=== PATIENT | female | born 1980 ===

== ENCOUNTER 2017-09-19 05:57 | Day surgery (SDC) | payer OTHER ==
[~2017-09-19 05:57] MED LIST: MUCINEX600 MG PO; SEPTRA PO; ZYRTEC10 M3 PO
== END 2017-09-19 11:25 | disposition home or self-care (01) ==
LOC: CIR.AMB 05:57
DX: L72.3 Sebaceous cyst (principal)

== ENCOUNTER 2018-07-31 11:30 | Inpatient (IN) | payer OTHER ==
[~2018-07-31] VITALS: Ht 157.5 cm; Wt 66.7 kg
[2018-07-31] MEDS ORDERED: ALLEGRA ALLERG180 MG PO (13:19)
[2018-07-31] MEDS ORDERED: [UNRECOGNIZED DRUG - OTHER] PO (13:21)
[2018-07-31] MEDS ORDERED: NITROFURANTOIN100 MG PO (13:22)
[2018-07-31] MEDS ORDERED: FLONASE16 GM NS (13:28)
[2018-08-03] MEDS ORDERED: PHENAZOPYRIDIN100 MG PO (11:05)
[2018-08-06] MEDS ORDERED: IBUPROFEN800 MG PO (07:38)
[2018-08-06] MEDS ORDERED: CODE1TAB37 PO (07:38)
[2018-08-06] MEDS ORDERED: DOCUSATE SODIU100 MG PO (07:40)
== END 2018-08-06 09:53 | disposition home or self-care (01) | DRG 743 ==
LOC: SURH 08-02 11:30 → O/R 08-02 12:54 → OB/GYN 08-02 12:54 → SURH 08-02 12:54 → OB/GYN 08-02 18:10 → SURH 08-02 19:14
PROVIDERS: ADMIT Obstetrics & Gynecology
PROC: 0UB50ZX Excision of Right Fallopian Tube, Open Approach, Diagnostic (ICD-10-PCS; 2018-08-02)
PROC: 0TJB8ZZ Inspection of Bladder, Via Natural or Artificial Opening Endoscopic (ICD-10-PCS; 2018-08-02)
PROC: 0T9B70Z Drainage of Bladder with Drainage Device, Via Natural or Artificial Opening (ICD-10-PCS; 2018-08-02)
PROC: 0UT90ZZ Resection of Uterus, Open Approach (ICD-10-PCS; principal; 2018-08-02 14:15)
DX: N92.0 Excessive and frequent menstruation with regular cycle (principal); D25.1 Intramural leiomyoma of uterus; N80.0 Endometriosis of uterus; N80.1 Endometriosis of ovary; D28.2 Benign neoplasm of uterine tubes and ligaments; D26.1 Other benign neoplasm of corpus uteri